=== PATIENT | female | born 1990 | race African-American/Black ===

== ENCOUNTER 2020-06-04 20:05 | Observation (INO) | payer OTHER ==
[2020-06-04 20:44] LABS: BILIRUBIN,URINE NEGATIVE (NEG); CLARITY,URINE CLEAR; COLOR,URINE YELLOW; NITRITE,URINE NEGATIVE (NEG); PH,URINE 6.5 (<5.0-8.0); PROTEIN,URINE NEGATIVE (NEG-TRACE)
[2020-06-04 21:00] LABS: BACTERIA,URINE MODERATE /HPF (0-FEW); RBC,URINE OCC /HPF (0-2); TRICHOMONAS,URINE PRESENT
== END 2020-06-04 21:20 | disposition home or self-care (01) ==
LOC: 3 SO LND 20:05
PROVIDERS: ADMIT Obstetrics & Gynecology; ATTEND Obstetrics & Gynecology
DX: O36.8120 Decreased fetal movements, second trimester, not applicable or unspecified (principal); O26.892 Other specified pregnancy related conditions, second trimester; R10.9 Unspecified abdominal pain; R10.2 Pelvic and perineal pain; Z3A.22 22 weeks gestation of pregnancy
CPT/HCPCS: 81001; 87086; G0378; G0379; 59025

== ENCOUNTER 2020-11-06 16:22 | Observation (INO) | payer OTHER ==
[2020-11-06] MEDS ORDERED: IV RINGERS,LACTATED 1000ML 1,000 ML IV SCH (17:15)
[2020-11-06 17:22] LABS: BILIRUBIN,URINE NEGATIVE (NEG); CLARITY,URINE CLEAR; COLOR,URINE YELLOW; NITRITE,URINE NEGATIVE (NEG); PROTEIN,URINE NEGATIVE (NEG-TRACE); UROBILINOGEN,URINE 0.2 mg/dL (0.2 mg/dL)
[2020-11-06 17:27] LABS: BARBITURATES NEG (NEG); BENZODIAZEPINES NEG (NEG); CANNABINOIDS NEG (NEG); COCAINE NEG (NEG); METHADONE NEG (NEG); OPIATES NEG (NEG); PHENCYCLIDINE NEG (NEG)
[2020-11-06 17:28] LABS: AMPHETAMINE/METHAMPHETAMINE NEG (NEG)
[2020-11-06 17:36] LABS: RBC,URINE 0 /HPF (0-2)
[2020-11-06 17:37] LABS: BACTERIA,URINE FEW /HPF (0-FEW); YEAST,URINE PRESENT /HPF
== END 2020-11-06 18:28 | disposition home or self-care (01) ==
LOC: 3 SO LND 16:22
PROVIDERS: ADMIT Obstetrics & Gynecology; ATTEND Obstetrics & Gynecology
DX: O62.9 Abnormality of forces of labor, unspecified (principal); O26.893 Other specified pregnancy related conditions, third trimester; N89.8 Other specified noninflammatory disorders of vagina; O36.8130 Decreased fetal movements, third trimester, not applicable or unspecified; Z3A.40 40 weeks gestation of pregnancy; Z79.899 Other long term (current) drug therapy
CPT/HCPCS: 59025; 80307; 81001; 87086; G0378; G0379